=== PATIENT | male | born 1990 | race Caucasian/White ===

== ENCOUNTER 2025-02-24 19:37 | Emergency (ER) | payer BC, SELFPAY ==
[2025-02-24 19:48] VITALS: BP 156/105
[2025-02-24 20:26] LABS: Hematocrit 45.1 % (39.0-52.0); Hemoglobin 15.2 g/dL (13.0-18.0); Mean Corp Hgb Conc. 33.7 g/dL (33.0-37.0); Mean Corpuscular Volume 86.1 fL (80.0-94.0); Nucleated Red Blood Cells % 0 % (-); Platelet Count 219 10^3/uL (130-400); Red Cell Dist. Width 12.8 % (11.5-14.5)
[2025-02-24 20:37] LABS: ALT (SGPT) 23 U/L (0-50); AST (SGOT) 25 U/L (17-59); Albumin 5.3 g/dl (3.5-5.0); Alkaline Phosphatase 55 U/L (38-126); Blood Urea Nitrogen 18 mg/dl (9-20); Calcium 9.9 mg/dl (8.4-10.2); Carbon Dioxide 23 mmol/L (22-30); Chloride 102 mmol/L (98-107); Glucose 102 mg/dl (70-99); Potassium 3.8 mmol/L (3.5-5.1); Sodium 135 mmol/L (135-145); Total Protein 8.4 g/dl (6.3-8.2); eGFR > 60.00
[2025-02-24 20:50] LABS: Troponin I < 0.012 ng/ml
--- NOTE | 2025-02-24 23:38 | ED.GENMED ---
History of Present Illness
General
Chief Complaint: Chest Pain
Source: patient
Exam Limitations: none
Time Seen by Provider: 02/24/25 23:37
Nursing documentation reviewed up to this point in time: agreed with
History of Present Illness
History of Present Illness:
34-year-old male with no past medical history presents to the ER today with concerns of intermittent chest pain for the past 5 days. Patient reports that the chest pain will come on and off and usually lasts for a few minutes to 20 minutes at most.
Of note, he was recently diagnosed with bronchitis and finished antibiotics and steroids a week ago. Patient reports that today, he did not really have any chest pain. He did have 1 episode that occurred after eating but he described as mild and
went away on its own after a few seconds. This past weekend, it was his bachelor alliance party and he had an episode of tachycardia with a rate of 140 after taking a marijuana gummy. Patient reports that he started to have a lot of anxiety and felt some
chest pains. His his friend helped him to breathing exercises which did resolve his pain. He denies any history of cardiac disease. He does have a family history of coronary artery disease in his grandpa. He denies any history of anxiety. He
denies any long distance travel. He denies any shortness of breath, abdominal pain, redness or swelling in his legs, syncopal episodes. He does admit to drinking around 1 alcoholic beverage daily as well as smoking tobacco products.
Review of Systems
Review of Systems
All Other Systems: ROS reviewed and negative except as documented in HPI and ROS
Phy Exam
Physical Exam
Physical Exam:
General: Patient is well appearing and in no acute distress; non-toxic
Skin: Warm and dry, no rashes or lesions
Head: Normocephalic, atraumatic
Eyes: Sclera non-icteric. EOMs intact.
Cardiac: Regular rate and rhythm, no murmurs, no tenderness palpation of the external chest wall
Peripheral Vascular: No lower extremity swelling or edema
Pulm: Normal respiratory effort, no wheezes, rales, rhonchi
Neuro: CN II-XII intact, no focal neurologic deficits.
Psychiatric: Appropriate mood and affect.
Scores
Heart Score for Chest Pain Patients
STEMI patient?: No
History: Slightly or Non-Suspicious
ECG: Normal
Age: </= 45 years
Risk Factors: 1 or 2 Risk Factors
Troponin: </= Normal Limit
Heart Score for Chest Pain Patients: 1
Heart Score Risk: 2.5% MACE over next 6 weeks
PERC Rule Criteria
Age <50 years: Yes
HR <100 bpm: Yes
Room air oxygen sat >94%: Yes
History of DVT or PE: No
Recent trauma or surgery: No
Hemoptysis: No
Exogenous estrogen: No
Clinical signs suggestive of DVT: No
: No
Considered low risk for PE: Yes
PERC Score: 0
PE can be excluded by PERC: Yes
Course
Orders/Labs/Results
Orders:
Orders
02/24/25 19:38
ECG [Electrocardiogram (*1)] Urgent
Reason for Study: Chest Pain
EKG- Treatment ONCE
02/24/25 19:53
CR Chest - 2 Views Urgent
Comment:
Reason For Exam: sonja pain, recent bronchitis
02/24/25 20:00
Complete Blood Count/With Diff Urgent
Comprehensive Metabolic Panel Urgent
Troponin I Urgent
02/24/25 23:59
Troponin I Urgent
Abnormal Lab Results
02/24/25
20:00
MPV 11.2 H fL
(7.4-10.4)
Absolute Lymphs (auto) 4.1 H 10^3/uL
(1.2-3.4)
Absolute Monos (auto) 0.7 H 10^3/uL
(0.1-0.6)
Glucose 102 H mg/dl
(70-99)
Total Protein 8.4 H g/dl
(6.3-8.2)
Albumin 5.3 H g/dl
(3.5-5.0)
02/24/25 20:00
02/24/25 20:00
Vital Signs
Initial and Last Documented VS:
Initial Vital Signs
Temp Pulse Resp BP Pulse Ox
97.8 F 86 16 156/105 98
02/24/25 19:48 02/24/25 19:48 02/24/25 19:48 02/24/25 19:48 02/24/25 19:48
Last Documented Vital Signs
Temp Pulse Resp BP Pulse Ox
97.8 F 82 16 156/107 98
02/24/25 19:48 02/25/25 00:55 02/25/25 00:55 02/25/25 00:55 02/25/25 00:55
MDM/Problems Addressed
Differential Diagnosis Includes:
Differentials include ACS, costochondritis, GERD, PE, musculoskeletal sprain/strain, anxiety
MDM/Problems Addressed:
34-year-old male with no past medical history presents to the ER today with concerns of intermittent chest pain for the past 5 days. Patient reports that the chest pain will come on and off and usually lasts for a few minutes to 20 minutes at most.
Today, he had 1 episode that lasted a few seconds but has otherwise been asymptomatic. The worst episode he had was this past weekend when he had associated tachycardia and was in the setting of marijuana use. Plan to obtain blood work, chest
x-ray, repeat Trop and EKG. PERC nonconcerning for PE.
On reassessment, patient continues to feel well. Patient expressed a lot of frustration about waiting and refused repeat EKG however did except repeat troponin. Did explain to patient that ideally, the best way to rule out ACS is with combined
assessment of troponin and EKG. Patient expressed understanding and states that he cannot stay any longer. Repeat troponin remains undetectable. Patient is pain-free at this point. Patient stable for discharge. Suspect pain likely related to
costochondritis/musculoskeletal etiology. Patient has not seen a primary care provider in a number of years but did make an appointment for next week. Discussed also potential evaluation with cardiology. Patient given referral. Patient stable
for discharge. Discussed strict return precautions.
Chronic conditions affecting care:
n/a
*Pulse Oximetry
SaO2: 98
Oxygen Mode of Delivery: Room air
Patient hypoxic: no
*Critical Care Note
Total Time (30-74mins, 75-104mins- exclusive of procedures): Not Applicable
Data Reviewed
Review of Other/Old Records Reveals: Records (No prior EKG for review, no discharge summary to review ) and Discharge Summary (No discharge summaries in [facility] for review)
Source: patient
ED Attending Note
-
Portions of this chart may have been created with voice recognition software.� Occasional wrong word or��sound alike� substitutions may have occurred due to the inherent limitations of voice recognition software.
Discharge Plan
Departure
Patient Disposition: Home (Routine Discharge)
Date of Disposition: 02/25/25
Time of Disposition: 00:49
Patient with high blood pressure during this ER visit?: Yes
Condition: Good
Discharge Problem:
Chest pain
Instructions: Quitting smoking for adults, BLOOD PRESSURE, Chest Pain
Referrals:
Josse Girard MD [Active, Cardiology] - Call in 1-3 days for appt
NONE,* [Family Provider, Internal Medicine]
Activity Restrictions/Additional Instructions:
Your blood work was unremarkable.
Please follow up with your primary care provider.
PLEASE RETURN TO THE ER SHOULD YOU DEVELOP SHORTNESS OF BREATH, DIZZINESS, LIGHTHEADEDNESS, ACUTE WORSENING OF YOUR SYMPTOMS, JAW PAIN, LEFT ARM PAIN, OR ANY OTHER SIGNS OR SYMPTOMS WORRISOME TO YOU.
Interventions
Interventions:
*Risk Screen - Suicide Last Done: 02/24/25 23:54
*General Assessment Last Done: 02/25/25 00:00
*Neglect/Abuse Screening Last Done: 02/24/25 23:54
*ED- Fall Risk Assessment Last Done: 02/24/25 23:53
*ED COVID-19 Vaccine History Last Done: 02/24/25 23:54
*Nursing Disposition Last Done: 02/25/25 00:55
ED- Cardiac Assessment Last Done: 02/25/25 00:05
Discharge Date and Time
Discharge Date/Time: 02/25/25 00:55
Print Language: PALAUAN
[2025-02-25 00:43] LABS: Troponin I < 0.012 ng/ml
[2025-02-25 00:55] VITALS: BP 156/107
== END 2025-02-25 00:55 | disposition home or self-care (01) ==
LOC: EMR 19:37
PROVIDERS: Emergency Medicine; EMERGENCY PHYSICIAN Emergency Medicine
DX: R07.9 Chest pain, unspecified (principal); F17.200 Nicotine dependence, unspecified, uncomplicated; F10.90 Alcohol use, unspecified, uncomplicated
CPT/HCPCS: 99285; 71046; 80053; 84484; 85025; 93005

== ENCOUNTER 2025-04-30 16:54 | Day surgery (SDC) | payer BC, SELFPAY ==
[2025-04-30] VITALS (9 sets, daily range): BP systolic 134–171; BP diastolic 73–91
--- NOTE | 2025-04-30 11:15 | ED.GENMED ---
History of Present Illness
<Melodie Hare PA-C - Last Filed: 04/30/25 23:13>
General
Chief Complaint: Abdominal Pain
Source: patient
Exam Limitations: none
Time Seen by Provider: 04/30/25 10:41
Nursing documentation reviewed up to this point in time: agreed with
History of Present Illness
History of Present Illness:
Patient is a 34-year-old male who presents emergency department right-sided abdominal pain. Patient states that symptoms started gradually around 10 AM yesterday morning. Reports noticing general abdominal discomfort throughout the day yesterday
however today pain seems more localized in his right mid abdomen. Yesterday, symptoms seem exacerbated with certain movements and twisting of his torso. He denies any associated fever or chills. No nausea, vomiting, or diarrhea.
Of note�patient states that 2 nights ago he ate 3/4 of a tray of [employer]. He initially thought his pain may be due to constipation however he took laxatives yesterday and today and has had multiple solid bowel movements.
He is planning to travel tomorrow for [facility] and was concerned that he may have appendicitis prompting visit to the emergency department.
Patient has no prior history of abdominal surgeries.
Review of Systems
<Melodie Hare PA-C - Last Filed: 04/30/25 23:13>
Review of Systems
Allergies reviewed?: Yes
All Other Systems: ROS reviewed and negative except as documented in HPI and ROS
Phy Exam
<Melodie Hare PA-C - Last Filed: 04/30/25 23:13>
Physical Exam
Physical Exam:
Vitals: Hypertensive, otherwise vital signs stable. Afebrile
General: Patient is well appearing, no acute distress. Nontoxic appearing
Skin: Warm and dry, no rashes or lesions
Head: Normocephalic, atraumatic
Throat: Protecting airway
Neck: Normal ROM, no cervical spine tenderness, no meningismus
Cardiac: Regular rate and rhythm, no murmurs.
Pulm: Normal respiratory effort. Lungs clear bilaterally
Abdomen: Abdomen soft. Mild abdominal tenderness in right mid abdomen. No rebound tenderness or guarding. Negative Lopez sign.
Extremities: No evidence of cyanosis or edema
Neuro: AAOx3. Grossly intact.
Psychiatric: Normal affect.
Course
<Melodie Hare PA-C - Last Filed: 04/30/25 23:13>
Orders/Labs/Results
Orders:
Orders
04/30/25 11:00
CT Abd/pelvis W Iv Cont Urgent
Comment:
Reason For Exam: RLQ pain
0.9% Sodium Chloride 1000 ml [Nss] 1,000 ml IV BOLUS
Ketorolac [Toradol] 15 mg IV NOW STA
04/30/25 11:42
Complete Blood Count/With Diff Urgent
Comprehensive Metabolic Panel Urgent
Lipase Urgent
04/30/25 14:36
Piperacillin/Tazo 3.375 Gram [Zosyn] 3.375 gram in 50 ml IV NOW
04/30/25 16:44
Fentanyl Citrate/Pf [Sublimaze] 100 mcg .ROUTE .STK-MED ONE
Lidocaine HCl/Pf [Xylocaine-Mpf 1% Vial] 50 mg .ROUTE .STK-MED ONE
Midazolam HCl [Versed] 2 mg .ROUTE .STK-MED ONE
Propofol [Diprivan] 20 ml .ROUTE .STK-MED
04/30/25 16:54
Bupivacaine 0.5%Pf/Epinephrin [Sensorcain-Mpf Epi 0.5%-0.0005] 30 ml .ROUTE .STK-MED ONE
Fentanyl Citrate/Pf [Sublimaze] 25 mcg IV [id number] PRN
HYDROmorphone [Dilaudid] 0.25 mg IV PACU-Q5MPRN PRN
HYDROmorphone [Dilaudid] 0.5 mg IV PACU-Q5MPRN PRN
Ondansetron Injectable [Zofran] 4 mg IV PACU-ONCEPRN PRN
Prochlorperazine [Compazine] 5 mg IV PACU-ONCEPRN PRN
Notify MD As Directed
Notify physician if: for SDS patients with known or suspected sleep obstructive sleep apnea, monitor in the
PACU.
Notify MD for any apneic/desaturation episodes
O2 Therapy [RESP] Urgent
Titrate/Wean O2 to maintain O2 sat greater than (%): 92
Special Instructions: -Provide supplemental oxygen to achieve O2 sat of 92% or greater.
-After 15 min, may wean O2 and discontinue if patient is able to maintain O2 sat of 92%
or greater during recovery period.
If patient is a discharge home, without oxygen therapy, notify anestheiologist if
unable to maintain O2 SAT of 92% or greater on room air for MD clearance.
04/30/25 17:00
Normosol (Mult Electrolytes) [Normosol-R/Plasmalyte-A] 1,000 ml IV PER PROTOCOL
04/30/25 17:35
Dexamethasone Sod Phosphate [Decadron] 20 mg .ROUTE .STK-MED ONE
Ondansetron Injectable [Zofran] 4 mg .ROUTE .STK-MED ONE
04/30/25 17:37
Sugammadex Sodium [Bridion] 200 mg .ROUTE .STK-MED ONE
OR Pathology Routine
Pre-Operative Diagnosis: ACUTE APPENDICITIS
Post-Operative Diagnosis: SAME
Operative Procedure: LAP APPY
Surgeon: MINI
Circulating Nurse: SHYLA
Specimen Type: APPENDIX
04/30/25 17:39
Ketorolac [Toradol] 30 mg .ROUTE .STK-MED ONE
04/30/25 17:50
Discharge Patient As Directed
04/30/25 17:59
HYDROmorphone [Dilaudid] 0.25 mg .ROUTE .STK-MED ONE
04/30/25 18:10
HYDROmorphone [Dilaudid] 0.25 mg .ROUTE .STK-MED ONE
04/30/25 18:19
HYDROmorphone [Dilaudid] 0.25 mg .ROUTE .STK-MED ONE
04/30/25 19:00
Acetaminophen [Tylenol] 650 mg PO SDS-Q4HPRN PRN
Ondansetron Injectable [Zofran] 4 mg IV SDS-ONCEPRN PRN
Oxycodone [Roxicodone] 10 mg PO SDS-Q4HPRN PRN
Oxycodone [Roxicodone] 5 mg PO SDS-Q4HPRN PRN
Abnormal Lab Results
04/30/25
11:42
MPV 10.9 H fL
(7.4-10.4)
Absolute Monos (auto) 0.7 H 10^3/uL
(0.1-0.6)
Sodium 134 L mmol/L
(135-145)
Total Bilirubin 1.4 H mg/dl
(0.2-1.3)
Albumin 5.1 H g/dl
(3.5-5.0)
04/30/25 11:42
04/30/25 11:42
Vital Signs
Initial and Last Documented VS:
Initial Vital Signs
Temp Pulse Resp BP Pulse Ox
97.8 F 89 20 171/79 98
04/30/25 09:06 04/30/25 09:06 04/30/25 09:06 04/30/25 09:06 04/30/25 09:06
Last Documented Vital Signs
Temp Pulse Resp BP Pulse Ox
97.9 F 81 18 144/77 95
04/30/25 18:29 04/30/25 18:30 04/30/25 18:30 04/30/25 18:30 04/30/25 18:30
<Tavo Frias MD - Last Filed: 04/30/25 14:44>
Orders/Labs/Results
Orders:
Orders
04/30/25 11:00
CT Abd/pelvis W Iv Cont Urgent
Comment:
Reason For Exam: RLQ pain
0.9% Sodium Chloride 1000 ml [Nss] 1,000 ml IV BOLUS
Ketorolac [Toradol] 15 mg IV NOW STA
04/30/25 11:42
Complete Blood Count/With Diff Urgent
Comprehensive Metabolic Panel Urgent
Lipase Urgent
04/30/25 14:36
Piperacillin/Tazo 3.375 Gram [Zosyn] 3.375 gram in 50 ml IV NOW
04/30/25 16:44
Fentanyl Citrate/Pf [Sublimaze] 100 mcg .ROUTE .STK-MED ONE
Lidocaine HCl/Pf [Xylocaine-Mpf 1% Vial] 50 mg .ROUTE .STK-MED ONE
Midazolam HCl [Versed] 2 mg .ROUTE .STK-MED ONE
Propofol [Diprivan] 20 ml .ROUTE .STK-MED
04/30/25 16:54
Bupivacaine 0.5%Pf/Epinephrin [Sensorcain-Mpf Epi 0.5%-0.0005] 30 ml .ROUTE .STK-MED ONE
Fentanyl Citrate/Pf [Sublimaze] 25 mcg IV [id number] PRN
HYDROmorphone [Dilaudid] 0.25 mg IV PACU-Q5MPRN PRN
HYDROmorphone [Dilaudid] 0.5 mg IV PACU-Q5MPRN PRN
Ondansetron Injectable [Zofran] 4 mg IV PACU-ONCEPRN PRN
Prochlorperazine [Compazine] 5 mg IV PACU-ONCEPRN PRN
Notify MD As Directed
Notify physician if: for SDS patients with known or suspected sleep obstructive sleep apnea, monitor in the
PACU.
Notify MD for any apneic/desaturation episodes
O2 Therapy [RESP] Urgent
Titrate/Wean O2 to maintain O2 sat greater than (%): 92
Special Instructions: -Provide supplemental oxygen to achieve O2 sat of 92% or greater.
-After 15 min, may wean O2 and discontinue if patient is able to maintain O2 sat of 92%
or greater during recovery period.
If patient is a discharge home, without oxygen therapy, notify anestheiologist if
unable to maintain O2 SAT of 92% or greater on room air for MD clearance.
04/30/25 17:00
Normosol (Mult Electrolytes) [Normosol-R/Plasmalyte-A] 1,000 ml IV PER PROTOCOL
04/30/25 17:35
Dexamethasone Sod Phosphate [Decadron] 20 mg .ROUTE .STK-MED ONE
Ondansetron Injectable [Zofran] 4 mg .ROUTE .STK-MED ONE
04/30/25 17:37
Sugammadex Sodium [Bridion] 200 mg .ROUTE .STK-MED ONE
OR Pathology Routine
Pre-Operative Diagnosis: ACUTE APPENDICITIS
Post-Operative Diagnosis: SAME
Operative Procedure: LAP APPY
Surgeon: MINI
Circulating Nurse: SHYLA
Specimen Type: APPENDIX
04/30/25 17:39
Ketorolac [Toradol] 30 mg .ROUTE .STK-MED ONE
04/30/25 17:50
Discharge Patient As Directed
04/30/25 17:59
HYDROmorphone [Dilaudid] 0.25 mg .ROUTE .STK-MED ONE
04/30/25 18:10
HYDROmorphone [Dilaudid] 0.25 mg .ROUTE .STK-MED ONE
04/30/25 18:19
HYDROmorphone [Dilaudid] 0.25 mg .ROUTE .STK-MED ONE
04/30/25 19:00
Acetaminophen [Tylenol] 650 mg PO SDS-Q4HPRN PRN
Ondansetron Injectable [Zofran] 4 mg IV SDS-ONCEPRN PRN
Oxycodone [Roxicodone] 10 mg PO SDS-Q4HPRN PRN
Oxycodone [Roxicodone] 5 mg PO SDS-Q4HPRN PRN
Abnormal Lab Results
04/30/25
11:42
MPV 10.9 H fL
(7.4-10.4)
Absolute Monos (auto) 0.7 H 10^3/uL
(0.1-0.6)
Sodium 134 L mmol/L
(135-145)
Total Bilirubin 1.4 H mg/dl
(0.2-1.3)
Albumin 5.1 H g/dl
(3.5-5.0)
04/30/25 11:42
04/30/25 11:42
Vital Signs
Initial and Last Documented VS:
Initial Vital Signs
Temp Pulse Resp BP Pulse Ox
97.8 F 89 20 171/79 98
04/30/25 09:06 04/30/25 09:06 04/30/25 09:06 04/30/25 09:06 04/30/25 09:06
Last Documented Vital Signs
Temp Pulse Resp BP Pulse Ox
97.9 F 81 18 144/77 95
04/30/25 18:29 04/30/25 18:30 04/30/25 18:30 04/30/25 18:30 04/30/25 18:30
<Melodie Hare PA-C - Last Filed: 04/30/25 23:13>
MDM/Problems Addressed
Differential Diagnosis Includes:
Not limited to: Constipation, acute appendicitis, biliary colic, muscular strain, renal colic, colitis, etc.
MDM/Problems Addressed:
34-year-old male with two days of right mid abdominal discomfort. No associated fever, nausea/vomiting, anorexia.
Vitals stable. On exam, patient appears very well. His abdomen is soft w/ mild tenderness in right abdomen. No rebound or guarding.
Differential broad. Possible viral illness, constipation. Given location of pain and history of symptoms � appendicitis would be on differential.
ED plan: labs, CT scan abdomen/pelvis. Will give IV fluids, treat pain, and reassess.
Update: labs without clinically significant abnormalities. No leukocytosis. Chemistry unremarkable. CT scan does show acute appendicitis without perforation or abscess.
Patient given Zosyn in emergency department. Pain remains well oontrolled after dose of Toradol.
Discussed with general surgeon, Dr. Chavez, who accepts to his service for further management and plan for likely OR tonight.
Chronic conditions affecting care:
N/A
Acute Exacerbation and/or Progression of Chronic Illness:
N/A
<Melodie Hare PA-C - Last Filed: 04/30/25 23:13>
*Radiology
Radiology exam reviewed: radiology read reviewed
*Pulse Oximetry
SaO2: 98
Oxygen Mode of Delivery: Room air
Patient hypoxic: no
*EKG
Interpreted by ED Provider?: NA
*Chore Worker Interpretation
Rate: Chore Worker- N/A
*Critical Care Note
Total Time (30-74mins, 75-104mins- exclusive of procedures): Not Applicable
<Melodie Hare PA-C - Last Filed: 04/30/25 23:13>
Patient Management
Discussion with other providers: Garment Manufacturing Supervisor (Case discussed w/ general surgery)
ED Attending Note
<Melodie Hare PA-C - Last Filed: 04/30/25 23:13>
-
Portions of this chart may have been created with voice recognition software.� Occasional wrong word or��sound alike� substitutions may have occurred due to the inherent limitations of voice recognition software.
<Tavo Frias MD - Last Filed: 04/30/25 14:44>
ED Attending Note
Patient seen and examined by attending physician: Yes
ED Attending Note:
I have seen and evaluated the patient with a [id number] encounter. I have spoken to the advance practicer provider and involved in the medical history, the physical exam, medical decision making.
Evaluation and management service: agree unless noted differently below.
Results interpretation: agree unless noted differently below.
Focused HPI: 34-year-old male with no reported chronic medical issues presents for evaluation of abdominal pain. Patient reports onset of symptoms yesterday of diffuse pain and bloating that was rather severe. Today pain not as intense but more
localized to the right lower quadrant and consistent. No diarrhea. No vomiting.
Physical exam: Awake and alert, not in distress. Hypertensive but otherwise normal vitals. Abdomen soft, tender to palpation right lower quadrant.
Medical Decision Makin-year-old male presents for abdominal pain since yesterday morning. Vitals and exam are as above. CT concerning for acute appendicitis. Discussed with general surgery. Treat with antibiotics.
Discharge Plan
Departure
Patient Disposition: Admit
Date of Disposition: 04/30/25
Time of Disposition: 14:38
Admit to doctor: Dr. Chavez
Presentation/result/management discussed w/ accepting MD/DO: General Surgery
Discharge Problem:
Acute appendicitis
Interventions
Interventions:
*Risk Screen - Suicide Last Done: 04/30/25 09:06
*General Assessment Last Done: 04/30/25 09:06
*Neglect/Abuse Screening Last Done: 04/30/25 09:06
*ED- Fall Risk Assessment Last Done: 04/30/25 11:54
*Nursing Disposition Last Done: 04/30/25 16:56
OB-Uwwpkr-Siuespxnxf Assessment Last Done: 04/30/25 11:54
Discharge Date and Time
Discharge Date/Time: 04/30/25 16:57
[2025-04-30] MEDS: NSS 1000 IV (11:49)
[2025-04-30 12:21] LABS: Hematocrit 44.1 % (39.0-52.0); Hemoglobin 15.2 g/dL (13.0-18.0); Mean Corp Hgb Conc. 34.5 g/dL (33.0-37.0); Mean Corpuscular Volume 86.1 fL (80.0-94.0); Nucleated Red Blood Cells % 0 % (-); Platelet Count 210 10^3/uL (130-400); Red Cell Dist. Width 12.5 % (11.5-14.5)
[2025-04-30 12:52] LABS: ALT (SGPT) 30 U/L (0-50); AST (SGOT) 27 U/L (17-59); Albumin 5.1 g/dl (3.5-5.0); Alkaline Phosphatase 50 U/L (38-126); Blood Urea Nitrogen 14 mg/dl (9-20); Calcium 9.6 mg/dl (8.4-10.2); Carbon Dioxide 23 mmol/L (22-30); Chloride 102 mmol/L (98-107); Glucose 96 mg/dl (70-99); Lipase 68 U/L (23-300); Potassium 4.3 mmol/L (3.5-5.1); Sodium 134 mmol/L (135-145); Total Protein 8.0 g/dl (6.3-8.2); eGFR > 60.00
[2025-04-30] MEDS: ZOSYN 50 IV (15:05)
--- NOTE | 2025-04-30 17:50 | W.PN.UPDATE ---
Update Note
Progress Note Update
Pt seen and evaluated in Preop area. C/o generalized ab pain that migrated to RLQ. Ttp to RLQ on exam. Labs unremarkable. CT notable for mild early acute appendicitis. OCTOR for kirsty appy.
Full consult note to follow.
--- NOTE | 2025-04-30 17:52 | OR.RPT ---
Operative Report
Operative Report
Primary Surgeon: Scott
Pre-op Diagnosis: Acute appendicitis
Post-op Diagnosis: Same
Procedure Performed: Laparoscopic appendectomy
Anesthesia Type: GETA
Specimen / Cultures: Appendix
Estimated Blood Loss: 5cc
Complications: None immediate
Operative Findings: Mildly inflamed appendix, no free fluid
Date of Surgery: 04/30/25
Indications: This 34M developed right lower quadrant abdominal pain and on workup was found to have acute appendicitis. Laparoscopic appendectomy was elected.
Description of procedure: The patient was placed on the operating table in the supine position. General anesthesia was induced. A time-out was completed verifying correct patient, procedure, site, positioning, and special equipment prior to
beginning this procedure. An orogastric tube was placed. The abdomen was prepped and draped in the usual sterile fashion. A stab incision was made in left upper quadrant and the Veress needle was inserted. Proper position was confirmed by aspiration
and saline meniscus test. The abdomen was insufflated with carbon dioxide to a pressure of 12 mmHg. The patient tolerated insufflation well.
A 5mm optical trocar was then inserted at the left lower quadrant. The laparoscope was inserted and the abdomen inspected. No injuries from initial trocar placement or Veress needle insertion were noted. Additional trocars were then inserted in the
following locations: a 12-mm trocar at the umbilicus and a 5-mm trocar midline in the suprapubic space. The abdomen was inspected and no abnormalities were found. The table was placed in the Trendelenburg position with the right side up. The
appendix was laying lateral to the cecum without any adhesions. The tip of the appendix was gently grasped with an atraumatic grasper and retracted toward the patient�s feet and abdominal wall. This maneuver exposed the appendiceal blood supply
which was controlled with the Ligasure device. Following this, a laparoscopic linear cutting stapler with a 45mm matthews load was deployed and used to transect the appendix at its base. The appendix was placed in an endoscopic retrieval bag, removed
through the umbilical port, and passed off the table as a specimen.
We then turned our attention to the staple line, which was noted to be hemostatic. The pelvis was inspected and no free fluid was found. The umbilical trocar site was closed at the fascial level laparoscopically with 2-0 PDS under direct vision.
Secondary trocars were removed under direct vision and noted to be hemostatic. The laparoscope was withdrawn and the abdomen was allowed to collapse. The skin was closed with subcuticular sutures of 4-0 monocryl and topical skin adhesive. The
orogastric tube was removed.
The patient tolerated the procedure well and was taken to the postanesthesia care unit in stable condition.
[2025-04-30] MEDS: DILAUDID 0.25 MG IV ×3 (17:59→18:19)
== END 2025-04-30 19:11 | disposition home or self-care (01) ==
LOC: SDS 16:54
PROVIDERS: Physician Assistant; ATTENDING PHYSICIAN Surgery; EMERGENCY PHYSICIAN Emergency Medicine; FAMILY PHYSICIAN Family Medicine
DX: K35.80 Unspecified acute appendicitis (principal)
CPT/HCPCS: 44970; 74177; 80053; 83690; 85025; 88304; 96361; 96365; 99285; Q9967